=== PATIENT | male | born 1960 | race Caucasian/White ===

== ENCOUNTER 2017-01-06 08:35 | Emergency (ER) | payer OTHER ==
[~2017-01-06] VITALS: Ht 182.9 cm; Wt 83.0 kg
[2017-01-06 08:51] VITALS: BP 130/90; PULSE 85; RESP 18; TEMP 97.5; O2SAT 96
[2017-01-06 09:07] VITALS: BP 130/90; PULSE 80; RESP 18; TEMP 97.5; O2SAT 97
[2017-01-06 09:35] VITALS: BP 130/90; PULSE 80; RESP 18; TEMP 97.5; O2SAT 96
--- NOTE | 2017-01-06 10:13 | PD ---
History of Present Illness Chief Complaint: Psychiatric Symptoms Time Seen by Provider: 09:45 Travel History International Travel<30 Days: No Contact w/Intl Traveler<30days: No Known affected area: No Legal Status Legal Status: Pinto Act Pinto Act Signed By: Eulalia Pinto Act Comment: "Suicidal Ideations" History of Present Illness: This is a 56-year-old male with multiple medical issues, who reportedly made threats to shoot himself at a [facility]. Patient does admit he made the statement "I might as well go home and shoot myself" but he denies actual suicidal plan or intent. He states he was aggravated with the physician who was seeing him. He reports he did not feel they were understanding her compassionate about his pain. He provided this physician with a list of physical problems that create his pain. However, he states he would never kill himself because it is against his samaritan. He verbally contracts for safety and his cognition is completely intact. He denies any homicidal ideation. He denies any psychotic symptoms. Psychiatric History Psychiatric History Hx Psychiatric Treatment: Denied History of Inpatient Treatment: No Guns or firearms in home: No Social History Hx Alcohol Use: No Hx Tobacco Use: No Hx Substance Use: No Hx of Substance Use Treatment: No Review of Systems Except as stated in HPI: all other systems reviewed are Neg Exam Alert: Yes [place]: Person, Place, Date, Situation Mood: Calm Affect: Appropriate Speech: Clear, Logical Eye Contact: Normal Memory Intact: Immediate, Recent, Remote Insight/Judgement Adequate MDM Medical Decision Making Medical Record Reviewed: Yes Assessment/Plan Pinto act being lifted and patient being discharged home. He does not meet criteria for Pinto act or for involuntary psychiatric hospitalization. Results Vital Signs Date Time Temp Pulse Resp B/P Pulse Ox O2 Delivery O2 Flow Rate FiO2 01/06/17 09:35 97.5 80 18 130/90 96 01/06/17 09:07 97.5 80 18 130/90 97 Room Air 01/06/17 08:51 97.5 85 18 130/90 96 Diagnosis Primary Impression: Adjustment disorder with mixed disturbance of emotions and conduct Zackary Casas MD January 06, 2017 10:13
--- NOTE | 2017-01-06 10:32 | PD ---
HPI Chief Complaint: Psychiatric Symptoms Time Seen by Provider: 10:27 Travel History International Travel<30 days: No Contact w/Intl Traveler<30days: No Traveled to known affect area: No History of Present Illness HPI 56-year-old male presents to the next ER as a Pinto act from [facility]. Apparently he was being seen and treated for abdominal pain and when he was discharged home stated that he was going to shoot himself in the head because no wrist pain. Denies suicidal ideation. He says it was just a comment because he's been living in pain for years. He has chronic back pain and abdominal pain. Denies fever, vomiting. Reports chronic diarrhea. Denies auditory or visual hallucinations. Denies homicidal ideations. Says he will do any drug use and get his hands on. [facility] Social History Tobacco Use: No Review of Systems Except as stated in HPI: all other systems reviewed are Neg Physical Exam Narrative GENERAL: Well-nourished, well-developed male patient, in no acute distress SKIN: Warm and dry. HEAD: Atraumatic. Normocephalic. EYES: Pupils equal and round. ENT: Mucosa pink and moist. NECK: Supple. Trachea midline. CARDIOVASCULAR: Regular rate and rhythm. No murmur appreciated. RESPIRATORY: No accessory muscle use. Clear to auscultation. Breath sounds equal bilaterally. GASTROINTESTINAL: Abdomen soft, non-tender, nondistended. Hepatic and splenic margins not palpable. Bowel sounds are active 4 quadrants. MUSCULOSKELETAL: No obvious deformities. No clubbing. No cyanosis. No edema. NEUROLOGICAL: Awake and alert. Oriented 3. No obvious cranial nerve deficits. Motor grossly within normal limits. Normal speech. Moves all extremities. 5/5 strength to all extremities. PSYCHIATRIC: No delusional thought processes. No hallucinations. Data Data Last Documented VS Vital Signs Date Time Temp Pulse Resp B/P Pulse Ox O2 Delivery O2 Flow Rate FiO2 01/06/17 09:35 97.5 80 18 130/90 96 01/06/17 09:07 Room Air Orders Diet Regular Basic (01/06/17 Lunch) [facility] Medical Decision Making Medical Screen Exam Complete: Yes Emergency Medical Condition: Yes Medical Record Reviewed: Yes Differential Diagnosis Psych evaluation, suicidal threat, medical clearance Narrative Course 56-year-old male was sent by [facility] under Millie act for threat of shooting himself in the head after being discharged. Patient has chronic abdominal pain and back pain. He had labs drawn prior to arrival and CMP and CBC are unremarkable. He was positive for cocaine, THC, opiates. Patient presents under a Pinto act. Physical examination and vital signs are essentially unremarkable. Psych screen has been ordered. The patient will be medically cleared for psychiatric evaluation and disposition. Diagnosis Primary Impression: Encounter for psychological evaluation Condition: Stable Stefanie Colunga January 06, 2017 10:32
[2017-01-06 13:21] VITALS: BP 130/90; TEMP 98
== END 2017-01-06 13:28 | disposition home or self-care (01) ==
LOC: NEPJ 08:35
DX: F43.25 Adjustment disorder with mixed disturbance of emotions and conduct (principal)
CPT/HCPCS: 99283

== ENCOUNTER 2017-03-21 01:26 | Inpatient (IN) | payer MEDICARE ==
[~2017-03-21] VITALS: Ht 182.9 cm; Wt 85.1 kg
[2017-03-21] VITALS (7 sets, daily range): BP systolic 129–157; BP diastolic 91–112; PULSE 56–97; RESP 16–20; TEMP 96.2–99.2; O2SAT 93–98
[~2017-03-21 01:26] MED LIST: LORA-373 PO
[2017-03-21] MEDS ORDERED: SENNOSIDES 8.6 MG TAB PO PRN (01:45)
[2017-03-21] MEDS ORDERED: ACETAMINOPHEN 325 MG TAB PO PRN (01:45)
[2017-03-21] MEDS ORDERED: SODIUM CHLORIDE 0.9% FLUSH 10 ML FLUSH IV FLUSH PRN (01:45)
[2017-03-21] MEDS ORDERED: NALOXONE HCL 0.4 MG/ML AMP IV PRN (01:45)
[2017-03-21] MEDS ORDERED: ONDANSETRON HCL 4 MG/2 ML VIAL IVP PRN (01:45)
[2017-03-21] MEDS ORDERED: ALPRAZolam 0.5 MG TAB PO ONE (02:15)
[2017-03-21] MEDS ORDERED: MORPHINE SULFATE 4 MG/ML INJ IV PUSH ONE ×2 (02:15→14:00)
[2017-03-21] MEDS: HEPARIN-D5W INJ 250 ML IV SCH ×2 (02:40→23:28)
[2017-03-21] MEDS: SODIUM CHLORIDE 0.9% FLUSH 10 ML FLUSH IV FLUSH SCH ×2 (09:00→20:15)
[2017-03-21 10:00] LABS: APTT (PATIENT) 35.5 SEC (24.3-30.1)
[2017-03-21] MEDS ORDERED: ALPRAZolam 1 MG TAB PO ONE ×2 (14:15→20:45)
--- NOTE | 2017-03-21 14:51 | HHI.HP ---
[facility] Service [facility] Primary Care Physician Unknown Admission Diagnosis Diagnoses: Chief Complaint: abdominal pain Travel History International Travel<30 Days: No Contact w/Intl Traveler <30 Da: No Traveled to Known Affected Are: No History of Present Illness This is a 57 year old man with a history of narcotic and benzodiazepine use or dependence who has come to the [facility] complaining of abdominal pain 3-4 days of severe abdominal pain after he ran out of his pain meds recently. He has had multiple pain med prescription pain meds from different drs and has been to various hospitals for "abdominal pain". pain is relieved with IV morphine.He says he has an "AAA" that needs repair. Ct abd/pelvis shows mesenteric vein thrombus. He has not had a thrombus before as per his report. He was admitted to the hospital for further evaluation. Review of Systems Constitutional: DENIES: Diaphoretic episodes, Fatigue, Fever, Weight gain, Weight loss, Chills, Dizziness, Change in appetite, Night Sweats Endocrine: DENIES: Heat/cold intolerance, Polydipsia, Polyuria, Polyphagia Eyes: DENIES: Blurred vision, Diplopia, Eye inflammation, Eye pain, Vision loss , Photosensitivity, Double Vision Ears, nose, mouth, throat: DENIES: Tinnitus, Hearing loss, Vertigo, Nasal discharge, Oral lesions, Throat pain, Hoarseness, Ear Pain, Running Nose, Epistaxis, Sinus Pain, Toothache, Odynophagia Respiratory: DENIES: Apneas, Cough, Snoring, Wheezing, Hemoptysis, Sputum production, Shortness of breath Cardiovascular: DENIES: Chest pain, Palpitations, Syncope, Dyspnea on Exertion , PND, Lower Extremity Edema, Orthopnea, Claudication Gastrointestinal: COMPLAINS OF: Abdominal pain, DENIES: Black stools, Bloody stools, Constipation, Diarrhea, Nausea, Vomiting, Difficulty Swallowing, Anorexia Genitourinary: DENIES: Sexual dysfunction, Urinary frequency, Urinary incontinence, Urgency, Hematuria, Dysuria, Nocturia, Penile Discharge, Testicular Pain, Testicular Swelling Musculoskeletal: DENIES: Joint pain, Muscle aches, Stiffness, Joint Swelling, Back pain, Neck pain Integumentary: DENIES: Abnormal pigmentation, Nail changes, Pruritus, Rash Hematologic/lymphatic: DENIES: Bruising, Lymphadenopathy Immunologic/allergic: DENIES: Eczema, Urticaria Neurologic: DENIES: Abnormal gait, Headache, Localized weakness, Paresthesias, Seizures, Speech Problems, Tremor, Poor Balance Psychiatric: DENIES: Anxiety, Confusion, Mood changes, Depression, Hallucinations, Agitation, Suicidal Ideation, Homicidal Ideation, Delusions Except as stated in HPI: all other systems reviewed are Neg Past Family Social History Past Medical History heparin gtt, anti-inflammatory Past Surgical History angioplasty? Reported Medications non-adherant with medical management Allergies: Coded Allergies: No Known Allergies (Unverified , 03/20/17) Active Ordered Medications reviewed in the EMR Family History Patient does not know Social History Tobacco 2ppd No Etoh lives alone Physical Exam Vital Signs Vital Signs Date Time Temp Pulse Resp B/P Pulse Ox O2 Delivery O2 Flow Rate FiO2 03/21/17 12:00 96.2 58 20 141/98 98 03/21/17 08:00 96.5 56 19 136/95 95 03/21/17 04:00 96.7 58 20 129/95 93 03/21/17 03:14 97 03/21/17 01:48 97.3 63 20 157/112 96 Physical Exam GENERAL: This is a well-nourished, well-developed patient, in no apparent distress. SKIN: No rashes, ecchymoses or lesions. Cool and dry. HEAD: Atraumatic. Normocephalic. No temporal or scalp tenderness. EYES: Pupils equal round and reactive. Extraocular motions intact. No scleral icterus. No injection or drainage. ENT: Nose without bleeding, purulent drainage or septal hematoma. Throat without erythema, tonsillar hypertrophy or exudate. Uvula midline. Airway patent. NECK: Trachea midline. No JVD or lymphadenopathy. Supple, nontender, no meningeal signs. CARDIOVASCULAR: Regular rate and rhythm without murmurs, gallops, or rubs. RESPIRATORY: Clear to auscultation. Breath sounds equal bilaterally. No wheezes , rales, or rhonchi. GASTROINTESTINAL: Abdomen soft, non-tender, nondistended. No hepato-splenomegaly , or palpable masses. No guarding. MUSCULOSKELETAL: Extremities without clubbing, cyanosis, or edema. No joint tenderness, effusion, or edema noted. No calf tenderness. Negative Homans sign bilaterally. NEUROLOGICAL: Awake and alert. Cranial nerves II through XII intact. Motor and sensory grossly within normal limits. Five out of 5 muscle strength in all muscle groups. Normal speech. Laboratory Laboratory Tests Test 03/21/17 09:20 Activated Partial 35.[address] abd/pelv 03/20 consistent with mesenteric vein thrombosis Assessment and Plan Problem List: (1) Mesenteric vein thrombosis ICD Code: I81 Status: Acute Plan: continue heparin gtt hematology eval pending I am unsure that this is causing his pain (2) Abdominal pain ICD Code: R10.9 Status: Acute Plan: Continue PO pain meds Some drug seeking behavior noted Physician Certification 2 Midnight Certification Type: Admission for Inpatient Services Order for Inpatient Services The services are ordered in accordance with Medicare regulations or non- Medicare payer requirements, as applicable. In the case of services not specified as inpatient-only, they are appropriately provided as inpatient services in accordance with the 2-midnight benchmark. Estimated LOS (days): 1 1 days is the estimated time the patient will need to remain in the hospital, assuming treatment plan goals are met and no additional complications. Post-Hospital Plan: Rachel Barboza MD Mar 21, 2017 14:51
[2017-03-21] MEDS: ACETAMINOPHEN/HYDROcodone 325 MG/10 MG TAB PO PRN ×2 (15:24→21:06)
[2017-03-21 17:30] LABS: APTT (PATIENT) 41.8 SEC (24.3-30.1)
[2017-03-21] MEDS: IBUPROFEN 400 MG TAB PO SCH (18:00)
[2017-03-21 23:19] LABS: APTT (PATIENT) 71.4 SEC (24.3-30.1)
[2017-03-22] VITALS: BP 109/68; PULSE 57; RESP 18; TEMP 96.3; O2SAT 98
[2017-03-22] MEDS: ACETAMINOPHEN/HYDROcodone 325 MG/10 MG TAB PO PRN (03:37)
[2017-03-22 04:00] VITALS: BP 128/85; PULSE 51; RESP 16; TEMP 96.3; O2SAT 93
[2017-03-22 07:58] VITALS: BP 146/99; PULSE 51; RESP 20; TEMP 96.7; O2SAT 97
[2017-03-22] MEDS: IBUPROFEN 400 MG TAB PO SCH (08:17)
[2017-03-22 08:18] LABS: AUTOMATED NEUTROPHIL # 2.9 TH/MM3 (1.8-7.7); BASOPHIL # 0.2 TH/MM3 (0-0.2); BASOPHIL % 2.7 % (0.0-2.0); EOSINOPHIL # 0.3 TH/MM3 (0-0.4); EOSINOPHIL % 3.9 % (0.0-4.0); LYMPH % 49.6 % (9.0-44.0); LYMPHOCYTE # 4.1 TH/MM3 (1.0-4.8); MEAN CORPUSCULAR HEMOGLOBIN 28.5 PG (27.0-34.0); MEAN CORPUSCULAR HGB CONC 32.4 % (32.0-36.0); MONO % 7.7 % (0.0-8.0); NEUT % 36.1 % (16.0-70.0); PLATELET COUNT 215 TH/MM3 (150-450); RED BLOOD COUNT 5.23 MIL/MM3 (4.50-5.90); RED CELL DISTRIBUTION WIDTH 17.1 % (11.6-17.2); WHITE BLOOD COUNT 8.1 TH/MM3 (4.0-11.0)
[2017-03-22] MEDS: SODIUM CHLORIDE 0.9% FLUSH 10 ML FLUSH IV FLUSH SCH (08:18)
[2017-03-22 08:22] LABS: HEMO FLAGS DIFF FINAL
[2017-03-22 08:23] LABS: POTASSIUM 3.6 MEQ/L (3.5-5.1)
[2017-03-22 08:28] LABS: BICARBONATE 27.5 MEQ/L (21.0-32.0)
[2017-03-22 08:48] LABS: APTT (PATIENT) 76.7 SEC (24.3-30.1)
[2017-03-22] MEDS ORDERED: RIVAROXABAN 15 MG TAB PO SCH (09:00)
[2017-03-22] MEDS ORDERED: ALPR1TAB3 PO (09:11)
[2017-03-22] MEDS ORDERED: XARE15TA PO (09:11)
[2017-03-22] MEDS ORDERED: HYDR-3583 PO (09:11)
--- NOTE | 2017-03-22 09:12 | HHI.DCPOC ---
Discharge Care Plan Diagnosis: (1) Mesenteric vein thrombosis (2) Abdominal pain (3) Chronic pain (4) Anxiety Goals to Promote Your Health * To prevent worsening of your condition and complications * To maintain your health at the optimal level Directions to Meet Your Goals Take your medications as prescribed Follow your dietary instruction Follow activity as directed Keep your appointments as scheduled Take your immunizations and boosters as scheduled If your symptoms worsen call your PCP, if no PCP go to Urgent Care Center or Emergency Room Smoking is Dangerous to Your Health. Avoid second hand smoke Call the 24-hour hour crisis hotline for domestic abuse at Rachel Burkett MD Mar 22, 2017 09:12
--- NOTE | 2017-03-22 09:16 | HHI.DS ---
Discharge Summary Admission Date Mar 21, 2017 at 01:30 Discharge Date: Mar 22, 2017 Admitting Diagnosis (1) Mesenteric vein thrombosis ICD Code: I81 (2) Abdominal pain ICD Code: R10.9 Procedures none Brief History - From Admission This is a 57 year old man with a history of narcotic and benzodiazepine use or dependence who has come to the [place] ER complaining of abdominal pain 3-4 days of severe abdominal pain after he ran out of his pain meds recently. He has had multiple pain med prescription pain meds from different drs and has been to various hospitals for "abdominal pain". pain is relieved with IV morphine.He says he has an "AAA" that needs repair. Ct abd/pelvis shows mesenteric vein thrombus. He has not had a thrombus before as per his report. He was admitted to the hospital for further evaluation. CBC/BMP: 03/22/17 0715 03/22/17 0715 Significant Findings Laboratory Tests Test 03/21/17 03/21/17 03/21/17 03/22/17 09:20 17:05 22:26 07:15 Activated Partial 35.5 SEC 41.8 SEC 71.4 SEC 76.7 SEC Thromboplast Time (24.3-30.1) (24.3-30.1) (24.3-30.1) (24.3-30.1) Lymphocytes (%) (Auto) 49.6 % (9.0-44.0) Basophils (%) (Auto) 2.7 % (0.0-2.0) Estimat Glomerular Filtration 78 ML/MIN (>89) Rate Calcium Level 8.4 MG/DL (8.5-10.1) Imaging Radiology reports from emergency room from03/21 PE at Discharge GENERAL: This is a well-nourished, well-developed patient, in no apparent distress. CARDIOVASCULAR: Regular rate and rhythm without murmurs, gallops, or rubs. RESPIRATORY: Clear to auscultation. Breath sounds equal bilaterally. No wheezes , rales, or rhonchi. GASTROINTESTINAL: Abdomen soft, non-tender, nondistended. Normal active bowel sounds MUSCULOSKELETAL: Extremities without clubbing, cyanosis, or edema. NEURO: Alert & Oriented x4 to person, place, time, situation. Moves all ext x4 Pt update on day of discharge Patient seen today ambulatory in room and without excessive pain. Reports improvement with Xanax yesterday. Plan of care and discharge plan discussed with patient who is agreeable Hospital Course Patient was seen and treated in follow-up for abdominal pain which appears to be chronic. Incidentally he was found to have a mesenteric thrombosis by images. Patient had no evidence of ischemic bowel and no further abdominal pain once he arrived to the hospital and received IV narcotics. He was ambulatory in the hospital and without any new complaints. He was quite insistent that he received pain medication for his chronic pain and anxiety medications for his chronic anxiety. Patient was discharged to follow with his primary care doctor after being started on Xarelto Pt Condition on Discharge: Good Discharge Disposition: Discharge Home Discharge Time: > 30 minutes Discharge Instructions DIET: Follow Instructions for: As Tolerated, No Restrictions Activities you can perform: Regular-No Restrictions Follow up Referrals: PCP Follow-up - 03/01/18 New Medications: Alprazolam (Alprazolam) 1 Mg Tab 1 MG PO Q8H PRN ANXIETY #20 Ref 0 TAB Hydrocodone-Acetaminophen (Hydrocodone-Acetaminophen) 10-325 mg Tab 1 TAB PO Q6H PRN PAIN SCALE 4 TO 10 #20 TAB Rivaroxaban (Xarelto) 15 Mg Tab 15 MG PO BID Please see her doctor for further prescriptions clot #42 TAB Discontinued Medications: Lorazepam (Lorazepam) 0.5 Mg Tab 0.5 MG PO DAILY PRN ANXIETY Ref 0 TAB Rachel Burkett MD Mar 22, 2017 09:16
== END 2017-03-22 11:37 | disposition home or self-care (01) | DRG 442 ==
LOC: PHEDDLT 01:26 → PH3B 01:30
PROVIDERS: ADMIT Hospitalist; ATTEND Hospitalist
DX: I81 Portal vein thrombosis (principal); F11.20 Opioid dependence, uncomplicated; F13.20 Sedative, hypnotic or anxiolytic dependence, uncomplicated; G89.29 Other chronic pain; F41.9 Anxiety disorder, unspecified; K40.90 Unilateral inguinal hernia, without obstruction or gangrene, not specified as recurrent; F17.210 Nicotine dependence, cigarettes, uncomplicated
CPT/HCPCS: 74176; 80048; 80053; 81001; 83605; 83690; 85007; 85025; 85027; 85610; 85730; 93005; C9113; J1644; J2270; J2405; J7030

== ENCOUNTER 2017-03-29 19:56 | Observation (INO) | payer MEDICARE ==
[~2017-03-29] VITALS: Ht 180.3 cm; Wt 82.0 kg
[~2017-03-29 19:56] MED LIST changes: +ALPR1TAB3 PO; +HYDR-3583 PO; -LORA-373 PO; +XARE15TA PO
[2017-03-29 20:10] VITALS: BP 158/87; PULSE 73; RESP 16; TEMP 98.2; O2SAT 96
[2017-03-29] MEDS ORDERED: ONDANSETRON HCL 4 MG/2 ML VIAL IVP ONE (20:15)
[2017-03-29] MEDS ORDERED: SODIUM CHLOR 0.9% 1000 ML INJ 1,000 ML IV SCH (20:15)
[2017-03-29] MEDS ORDERED: MORPHINE SULFATE 4 MG/ML INJ IV PUSH ONE (20:15)
--- NOTE | 2017-03-29 20:33 | PD ---
HPI Chief Complaint: Abdominal Pain Time Seen by Provider: 20:15 Travel History International Travel<30 days: No Contact w/Intl Traveler<30days: No Traveled to known affect area: No History of Present Illness HPI 57-year-old male presents via EMS for evaluation of abdominal pain. The patient reports that a few days ago he had a right inguinal hernia repair at [facility] in [place]. He reports that he was released from the hospital 2 days ago. Yesterday he had to walk 2 miles while carrying some of his belongings because his bus stop was far away from his house. He reports that he has been having right inguinal pain since this morning. He feels like the hernia has returned. The pain is constant, aching, worse with movement. He endorses some nausea but denies vomiting. He denies any diarrhea or constipationhis last bowel movement was yesterday morning. He reports that he has been using the hydrocodone that was prescribed with minimal relief. He denies fevers or chills. He has no other complaints. PFSH Past Medical History Hx Anticoagulant Therapy: Yes (XARALTO) AAA: Yes ("stable") Arthritis: Yes Anxiety: Yes Depression: Yes Heart Rhythm Problems: No Cancer: No Cardiovascular Problems: Yes High Cholesterol: No Chest Pain: Yes (nitro) Congestive Heart Failure: No Cerebrovascular Accident: No Endocrine: No GERD: No Genitourinary: No Headaches: Yes Hiatal Hernia: No Hypertension: Yes Immune Disorder: No Musculoskeletal: Yes Neurologic: Yes Psychiatric: Yes Reproductive: No Respiratory: No Migraines: Yes Seizures: Yes (heat triggers, ) Ulcer: No Past Surgical History Abdominal Surgery: No AICD: No Arteriovenous Shunt: No Cardiac Surgery: Yes (angioplasty, stents) Ear Surgery: No Endocrine Surgery: No Eye Surgery: No Genitourinary Surgery: No Gynecologic Surgery: No Insulin Pump: No Joint Replacement: No Oral Surgery: No Pacemaker: No Thoracic Surgery: No Other Surgery: Yes (Pt states "all over his body" unable to provide specifics.) Social History Alcohol Use: No Tobacco Use: Yes Substance Use: Yes (Marijuana) Allergies-Medications (Allergen,Severity, Reaction): Coded Allergies: No Known Allergies (Unverified , 03/30/17) Reported Meds & Prescriptions Reported Meds & Active Scripts Active Xarelto (Rivaroxaban) 15 Mg Tab 15 Mg PO BID Please see her doctor for further prescriptions Review of Systems Except as stated in HPI: all other systems reviewed are Neg Physical Exam Narrative GENERAL: Well-developed well-nourished male in no acute distress SKIN: Warm and dry. Surgical wound noted in the right inguinal region. There is some surrounding ecchymosis. HEAD: Atraumatic. Normocephalic. EYES: Pupils equal and round. No scleral icterus. No injection or drainage. ENT: No nasal bleeding or discharge. Mucous membranes pink and moist. NECK: Trachea midline. No JVD. CARDIOVASCULAR: Regular rate and rhythm. No murmur appreciated. RESPIRATORY: No accessory muscle use. Clear to auscultation. Breath sounds equal bilaterally. GASTROINTESTINAL: Abdomen soft, non-tender, nondistended. There is a right inguinal hernia present that extends into the scrotum. This is tender to palpation. MUSCULOSKELETAL: No obvious deformities. No edema. NEUROLOGICAL: Awake and alert. No obvious cranial nerve deficits. Motor grossly within normal limits. Normal speech. PSYCHIATRIC: Appropriate mood and affect; insight and judgment normal. Data Data Last Documented VS Vital Signs Date Time Temp Pulse Resp B/P Pulse Ox O2 Delivery O2 Flow Rate FiO2 03/30/17 07:06 61 18 121/65 95 Room Air 03/29/17 20:10 98.2 Orders Complete Blood Count With Diff (03/29/17 20:15) Comprehensive Metabolic Panel (03/29/17 20:15) Lipase (03/29/17 20:15) Lactic Acid (03/29/17 20:15) Prothrombin Time / Inr (Pt) (03/29/17 20:15) Act Partial Throm Time (Ptt) (03/29/17 20:15) Urinalysis - C+S If Indicated (03/29/17 20:15) Ct Abd/Pel W Iv Contrast(Rout) (03/29/17 20:15) Iv Access Insert/Monitor (03/29/17 20:15) Morphine Inj (Morphine Inj) (03/29/17 20:15) Ondansetron Inj (Zofran Inj) (03/29/17 20:15) Sodium Chlor 0.9% 1000 Ml Inj (Ns 1000 M (03/29/17 20:15) Electrocardiogram (03/29/17 20:15) Type And Screen (03/29/17 20:15) Iohexol 350 Inj (Omnipaque 350 Inj) (03/29/17 21:58) Morphine Inj (Morphine Inj) (03/29/17 22:45) Vancomycin Inj (Vancomycin Inj) (03/29/17 23:15) Piperacil-Tazo 3.375 Gm Premix (Zosyn 3. (03/29/17 23:15) Consult General Surgery (03/30/17 ) (Hub Use Only)Inp Phy Cons/Ref (03/30/17 ) NPO (03/30/17 02:07) Morphine Inj (Morphine Inj) (03/30/17 02:30) Sodium Chlor 0.9% 1000 Ml Inj (Ns 1000 M (03/30/17 02:30) Morphine Inj (Morphine Inj) (03/30/17 06:00) Place In Observation (03/30/17 ) Consult Paulino Nfs (03/30/17 ) Diet Regular Basic (03/30/17 Breakfast) Diet Progression Instructions (03/30/17 09:58) Code Status (03/30/17 10:01) Vital Signs (Adult) FAISAL.Q4H (03/30/17 10:01) Activity Oob Ad Gela (03/30/17 10:01) Discontinue Iv (03/30/17 10:01) Change Dressing (03/30/17 10:01) Sodium Chloride 0.9% Flush (Ns Flush) (03/30/17 10:15) Sodium Chloride 0.9% Flush (Ns Flush) (03/30/17 21:00) Acetamin-Hydrocod 325-5 Mg ([place] 5-325 (03/30/17 10:15) Complete Blood Count With Diff (03/31/17 06:00) Acetamin-Hydrocod 325-5 Mg ([place] 5-325 (03/30/17 10:15) Ondansetron Inj (Zofran Inj) (03/30/17 10:15) Post-Op Orders (For Pharmacy) (Post-Op O (03/30/17 10:15) Acetaminophen Inj (Ofirmev Inj) (03/30/17 11:00) Ciprofloxacin (Cipro) (03/30/17 21:00) Labs Laboratory Tests Test 8/6/17 8/6/17 8/6/17 20:25 20:28 22:30 Lactic Acid Level 1.1 mmol/L White Blood Count 12.9 TH/MM3 Red Blood Count 5.75 MIL/MM3 Hemoglobin 16.7 GM/DL Hematocrit 49.7 % Mean Corpuscular Volume 86.3 FL Mean Corpuscular Hemoglobin 29.0 PG Mean Corpuscular Hemoglobin 33.6 % Concent Red Cell Distribution Width 16.4 % Platelet Count 379 TH/MM3 Mean Platelet Volume 7.6 FL Neutrophils (%) (Auto) 73.4 % Lymphocytes (%) (Auto) 17.5 % Monocytes (%) (Auto) 7.3 % Eosinophils (%) (Auto) 1.2 % Basophils (%) (Auto) 0.6 % Neutrophils # (Auto) 9.5 TH/MM3 Lymphocytes # (Auto) 2.3 TH/MM3 Monocytes # (Auto) 0.9 TH/MM3 Eosinophils # (Auto) 0.2 TH/MM3 Basophils # (Auto) 0.1 TH/MM3 CBC Comment DIFF FINAL Differential Comment Prothrombin Time 11.1 SEC Prothromb Time International 1.0 RATIO Ratio Activated Partial 30.5 SEC Thromboplast Time Sodium Level 137 MEQ/L Potassium Level 3.6 MEQ/L Chloride Level 103 MEQ/L Carbon Dioxide Level 24.2 MEQ/L Anion Gap 10 MEQ/L Blood Urea Nitrogen 9 MG/DL Creatinine 0.92 MG/DL Estimat Glomerular Filtration 85 ML/MIN Rate Random Glucose 109 MG/DL Calcium Level 9.1 MG/DL Total Bilirubin 0.8 MG/DL Aspartate Amino Transf 16 U/L (AST/SGOT) Alanine Aminotransferase 17 U/L (ALT/SGPT) Alkaline Phosphatase 85 U/L Total Protein 7.7 GM/DL Albumin 3.5 GM/DL Lipase 53 U/L Blood Type A POSITIVE Antibody Screen NEGATIVE Blood Bank Comment Urine Color YELLOW Urine Turbidity CLEAR Urine pH 7.5 Urine Specific [place] 1.033 Urine Protein NEG mg/dL Urine Glucose (UA) NEG mg/dL Urine Ketones 10 mg/dL Urine Occult Blood NEG Urine Nitrite NEG Urine Bilirubin NEG Urine Urobilinogen LESS THAN 2.0 MG/DL Urine Leukocyte Esterase NEG Urine RBC 3 /hpf Urine WBC LESS THAN 1 /hpf Urine Squamous Epithelial <1 /hpf Cells Urine Bacteria RARE /hpf Microscopic Urinalysis Comment CULT NOT INDICATED MDM Medical Decision Making Medical Screen Exam Complete: Yes Emergency Medical Condition: Yes Medical Record Reviewed: Yes Interpretation(s) CONCLUSION: 1. Patient reportedly recently postoperative from inguinal hernia repair. There is a 4.2 cm complex air and fluid collection just deep to the inguinal ring and there is another 3.4 cm air and fluid collection in the upper left scrotum with multiple locules of air and fluid between these 2 structures. I cannot see any definite connection to bowel. These likely represent postoperative changes but cannot exclude abscess or recurrent hernia. Differential Diagnosis Postoperative edema, postoperative inguinal hernia, incarcerated hernia, strangulated hernia, abscess, seroma Narrative Course 57-year-old male who underwent right inguinal hernia repair a few days ago at [facility] presents now with increased pain and swelling the right inguinal region since this morning. On examination he does have an obvious right inguinal hernia that extends into the scrotum. He has some ecchymosis surrounding the surgical wound. There is no erythema. Ice packs will be applied. The patient will be given parenteral morphine, Zofran and IV fluids. Plan is for basic lab work, CT abdomen and pelvis. We will attempt to obtain records from [facility]. The patient's CT abdomen and pelvis reveals 4.2 CM repair complex air and fluid collection just deep to the inguinal ring and there is another 3.4 cm area of fluid collection in the upper left scrotum with multiple locules of air and fluid between these 2 structures. Certainly this is concerning for postoperative abscess. I discussed with our on-call surgeon Dr. Dominguez who recommends transferring the patient to [facility] for continuation of care purposes. 2305: Dr. Mendoza discussed with Dr. stallings, the general surgeon who performed the operation at [facility]. He declines transfer. Dr. Mendoza again discussed with Dr. Dominguez who is agreeable with consult on the patient and recommends admission to medicine. The case Was discussed with the hospitalist who feels that this patient should be admitted surgically. 0133: The case was again discussed with Dr. Dominguez who would like the patient to remain in the emergency room and he will evaluate him in the morning. 0700: At the end of my shift this patient was signed out to Stefanie SALGADO pending evaluation by Dr. Dominguez in the ED. Diagnosis Primary Impression: Postoperative pain Additional Impressions: Leukocytosis Qualified Code: D72.829 - Leukocytosis, unspecified type S/P inguinal hernia repair Scripts Ciprofloxacin (Cipro)500 Mg [id number] Mg PO Q12HR 5 Days Prov:Zulay Lockett 03/31/17 Yoshi Rios Mar 29, 2017 20:33
[2017-03-29 21:02] LABS: AUTOMATED NEUTROPHIL # 9.5 TH/MM3 (1.8-7.7); BASOPHIL # 0.1 TH/MM3 (0-0.2); BASOPHIL % 0.6 % (0.0-2.0); EOSINOPHIL # 0.2 TH/MM3 (0-0.4); EOSINOPHIL % 1.2 % (0.0-4.0); HEMATOCRIT 49.7 % (39.0-51.0); HEMO FLAGS DIFF FINAL; LYMPH % 17.5 % (9.0-44.0); LYMPHOCYTE # 2.3 TH/MM3 (1.0-4.8); MEAN CELL VOLUME 86.3 FL (80.0-100.0); MEAN CORPUSCULAR HGB CONC 33.6 % (32.0-36.0); MONO % 7.3 % (0.0-8.0); NEUT % 73.4 % (16.0-70.0); PLATELET COUNT 379 TH/MM3 (150-450); RED BLOOD COUNT 5.75 MIL/MM3 (4.50-5.90); RED CELL DISTRIBUTION WIDTH 16.4 % (11.6-17.2); WHITE BLOOD COUNT 12.9 TH/MM3 (4.0-11.0)
[2017-03-29 21:18] LABS: ALT (GPT) 17 U/L (12-78)
[2017-03-29 21:19] LABS: APTT (PATIENT) 30.5 SEC (24.3-30.1); PROTHROMBIN TIME - PATIENT 11.1 SEC (9.8-11.6)
[2017-03-29 21:20] LABS: ALKALINE PHOSPHATASE 85 U/L (45-117); TOTAL BILIRUBIN ADULT 0.8 MG/DL (0.2-1.0)
[2017-03-29 21:31] LABS: ANION GAP 10 MEQ/L (5-15); AST (GOT) 16 U/L (15-37); BICARBONATE 24.2 MEQ/L (21.0-32.0); BLOOD UREA NITROGEN 9 MG/DL (7-18); CHLORIDE 103 MEQ/L (98-107); GLOMERULAR FILTRATION RATE 85 ML/MIN (>89); POTASSIUM 3.6 MEQ/L (3.5-5.1); SODIUM (NA) 137 MEQ/L (136-145)
[2017-03-29] MEDS: IOHEXOL 350 MG/ML 10 ML VIAL (for RAD DIAG) IV ONE (21:58)
--- NOTE | 2017-03-29 22:18 | RADRPT ---
EXAM DATE/TIME: 03/29/2017 21:56 [place] COMPARISON: No previous studies available for comparison. INDICATIONS : Inguinal hernia repaired a few days ago. Complains of inguinal pain today. IV CONTRAST: 95 cc Omnipaque 350 (iohexol) IV ORAL CONTRAST: No oral contrast ingested. RADIATION DOSE: 11.21 CTDIvol (mGy) ; Patient motion MEDICAL HISTORY : Hypertension. Cardiovascular disease Aneurysm, abdominal.Inguinal Hernia. SURGICAL HISTORY : Abdominal aortic aneurysm repair. Inguinal hernia repair. ENCOUNTER: Initial ACUITY: 1 day PAIN SCALE: 10/10 LOCATION: Bilateral lower quadrant TECHNIQUE: Volumetric scanning of the abdomen and pelvis was performed. Using automated exposure control and ad justment of the mA and/or kV according to patient size, radiation dose was kept as low as reasonably achievable to obtain optimal diagnostic quality images. DICOM format image data is available electro nically for review and comparison. FINDINGS: Calcified left lung base. The lung bases otherwise clear. No acute findings in the liver, spleen, adrenals, kidneys or pancreas. There is mild aneurysmal dilat ation of the abdominal aorta to 3.3 cm. In the right inguinal region there is a loculated fluid collection just posterior to the inguinal rin g measuring about 4.3 cm in diameter containing some loculated air. There is complex air and fluid ex tending towards the scrotal region and there is a 3.4 cm complex fluid collection in the upper left s crotum. This could be related to recent surgery. Cannot exclude abscess formation. There is no left i nguinal hernia. No pelvic mass or adenopathy. No free air or significant free fluid. CONCLUSION: 1. Patient reportedly recently postoperative from inguinal hernia repair. There is a 4.2 cm complex a ir and fluid collection just deep to the inguinal ring and there is another 3.4 cm air and fluid chema ection in the upper left scrotum with multiple locules of air and fluid between these 2 structures. I cannot see any definite connection to bowel. These likely represent postoperative changes but cannot exclude abscess or recurrent hernia. Aidan Paz MD on March 29, 2017 at 22:09 Board Certified Radiologist. This report was verified electronically.
[2017-03-29 22:43] LABS: BACTERIA, URINE RARE /hpf; BLOOD, URINE NEG (NEG); COMMENT (UR) CULT NOT INDICATED; CULTURE IF INDICATED CULT NOT INDICATED; GLUCOSE,URINE NEG (NEG); KETONE, URINE 10 mg/dL (NEG); NITRITE,URINE NEG (NEG); PH, URINE 7.5 (5.0-8.5); SQUAMOUS EPITHELIAL CELL URINE <1 /hpf (0-5); URINE COLOR YELLOW (YELLW/STRAW)
[2017-03-29] MEDS: MORPHINE SULFATE 4 MG/ML INJ IV PUSH ONE ×2 (22:45→23:22)
[2017-03-29] MEDS ORDERED: VANCOMYCIN INJ 1,000 MG in SODIUM CHLOR 0.9% 250 ML INJ 250 ML IV ONE (23:15)
[2017-03-29] MEDS ORDERED: PIPERACIL-TAZO 3.375 GM PREMIX 50 ML IV ONE (23:15)
--- NOTE | 2017-03-29 23:43 | PD ---
Physical Exam Narrative I, Dr. Mendoza, have reviewed the advance practice practitioner's documentation and am in agreement, met with the patient face to face, made the diagnosis, and the medical decision making was done by me. *My assessment and Findings: Patient is a 57-year-old male who had a right inguinal hernia repair at [facility] by Dr. Orellana on March 24, who comes in complaining of pain and swelling to the surgical site. He says that yesterday he was walking along distance and carrying a camping mattress, and then he felt as if the hernia had come back out. He is complaining of a lot of pain. He says he has not had a bowel movement since yesterday. He said some nausea, but no vomiting. Exam shows large swelling to the surgical site and into the right testicle. This area is very tender to palpation. There is also tenderness to the lower abdomen. Data Data Last Documented VS Vital Signs Date Time Temp Pulse Resp B/P Pulse Ox O2 Delivery O2 Flow Rate FiO2 03/30/17 07:06 61 18 121/65 95 Room Air 03/29/17 20:10 98.2 Orders Complete Blood Count With Diff (03/29/17 20:15) Comprehensive Metabolic Panel (03/29/17 20:15) Lipase (03/29/17 20:15) Lactic Acid (03/29/17 20:15) Prothrombin Time / Inr (Pt) (03/29/17 20:15) Act Partial Throm Time (Ptt) (03/29/17 20:15) Urinalysis - C+S If Indicated (03/29/17 20:15) Ct Abd/Pel W Iv Contrast(Rout) (03/29/17 20:15) Iv Access Insert/Monitor (03/29/17 20:15) Morphine Inj (Morphine Inj) (03/29/17 20:15) Ondansetron Inj (Zofran Inj) (03/29/17 20:15) Sodium Chlor 0.9% 1000 Ml Inj (Ns 1000 M (03/29/17 20:15) Electrocardiogram (03/29/17 20:15) Type And Screen (03/29/17 20:15) Iohexol 350 Inj (Omnipaque 350 Inj) (03/29/17 21:58) Morphine Inj (Morphine Inj) (03/29/17 22:45) Vancomycin Inj (Vancomycin Inj) (03/29/17 23:15) Piperacil-Tazo 3.375 Gm Premix (Zosyn 3. (03/29/17 23:15) Consult General Surgery (03/30/17 ) (Hub Use Only)Inp Phy Cons/Ref (03/30/17 ) NPO (03/30/17 02:07) Morphine Inj (Morphine Inj) (03/30/17 02:30) Sodium Chlor 0.9% 1000 Ml Inj (Ns 1000 M (03/30/17 02:30) Morphine Inj (Morphine Inj) (03/30/17 06:00) Place In Observation (03/30/17 ) Consult Paulino Nfs (03/30/17 ) Diet Regular Basic (03/30/17 Breakfast) Diet Progression Instructions (03/30/17 09:58) Code Status (03/30/17 10:01) Vital Signs (Adult) FAISAL.Q4H (03/30/17 10:01) Activity Oob Ad Gela (03/30/17 10:01) Discontinue Iv (03/30/17 10:01) Change Dressing (03/30/17 10:01) Sodium Chloride 0.9% Flush (Ns Flush) (03/30/17 10:15) Sodium Chloride 0.9% Flush (Ns Flush) (03/30/17 21:00) Acetamin-Hydrocod 325-5 Mg ([place] 5-325 (03/30/17 10:15) Complete Blood Count With Diff (03/31/17 06:00) Acetamin-Hydrocod 325-5 Mg ([place] 5-325 (03/30/17 10:15) Ondansetron Inj (Zofran Inj) (03/30/17 10:15) Post-Op Orders (For Pharmacy) (Post-Op O (03/30/17 10:15) Acetaminophen Inj (Ofirmev Inj) (03/30/17 11:00) Ciprofloxacin (Cipro) (03/30/17 21:00) Labs Laboratory Tests Test 03/29/17 03/29/17 03/29/17 20:25 20:28 22:30 Lactic Acid Level 1.1 mmol/L White Blood Count 12.9 TH/MM3 Red Blood Count 5.75 MIL/MM3 Hemoglobin 16.7 GM/DL Hematocrit 49.7 % Mean Corpuscular Volume 86.3 FL Mean Corpuscular Hemoglobin 29.0 PG Mean Corpuscular Hemoglobin 33.6 % Concent Red Cell Distribution Width 16.4 % Platelet Count 379 TH/MM3 Mean Platelet Volume 7.6 FL Neutrophils (%) (Auto) 73.4 % Lymphocytes (%) (Auto) 17.5 % Monocytes (%) (Auto) 7.3 % Eosinophils (%) (Auto) 1.2 % Basophils (%) (Auto) 0.6 % Neutrophils # (Auto) 9.5 TH/MM3 Lymphocytes # (Auto) 2.3 TH/MM3 Monocytes # (Auto) 0.9 TH/MM3 Eosinophils # (Auto) 0.2 TH/MM3 Basophils # (Auto) 0.1 TH/MM3 CBC Comment DIFF FINAL Differential Comment Prothrombin Time 11.1 SEC Prothromb Time International 1.0 RATIO Ratio Activated Partial 30.5 SEC Thromboplast Time Sodium Level 137 MEQ/L Potassium Level 3.6 MEQ/L Chloride Level 103 MEQ/L Carbon Dioxide Level 24.2 MEQ/L Anion Gap 10 MEQ/L Blood Urea Nitrogen 9 MG/DL Creatinine 0.92 MG/DL Estimat Glomerular Filtration 85 ML/MIN Rate Random Glucose 109 MG/DL Calcium Level 9.1 MG/DL Total Bilirubin 0.8 MG/DL Aspartate Amino Transf 16 U/L (AST/SGOT) Alanine Aminotransferase 17 U/L (ALT/SGPT) Alkaline Phosphatase 85 U/L Total Protein 7.7 GM/DL Albumin 3.5 GM/DL Lipase 53 U/L Blood Type A POSITIVE Antibody Screen NEGATIVE Blood Bank Comment Urine Color YELLOW Urine Turbidity CLEAR Urine pH 7.5 Urine Specific [place] 1.033 Urine Protein NEG mg/dL Urine Glucose (UA) NEG mg/dL Urine Ketones 10 mg/dL Urine Occult Blood NEG Urine Nitrite NEG Urine Bilirubin NEG Urine Urobilinogen LESS THAN 2.0 MG/DL Urine Leukocyte Esterase NEG Urine RBC 3 /hpf Urine WBC LESS THAN 1 /hpf Urine Squamous Epithelial <1 /hpf Cells Urine Bacteria RARE /hpf Microscopic Urinalysis Comment CULT NOT INDICATED MDM Supervised Visit with TAMICA: Yes Narrative Course Patient is a 57 year old male who comes in complaining of pain and swelling to his surgical site. CT abd/pelvis shows post-op changes vs abscess vs return of the inguinal hernia. Dr. Dominguez of general surgery advised that we call his surgeon at [facility]. I spoke with Dr. Orellana at 23:05 who states "I am not adult education professional for [facility]. That patient can follow up in my office." I explained that I was concerned he could have an abscess and become very ill if he were to be discharged. I explained that I felt it was in the best interest of the patient to have continuity of care and be seen by the surgeon who did his operation. Dr. Orellana still refused to accept the patient for transfer and to see him in the hospital. Patient given Vancomycin and Zosyn while waiting for the transfer center to speak with their administration. At 00:08, I spoke with Dr. Orellana again, who states the patient is supposed to call and make a follow up appointment. I expressed my concern that he was having a post-op complication, but Dr. Orellana says he will not accept transfer back to [facility]. He insists that surgeons here at [facility] should see the patient and will not comment further on the possibility of a post -op complication. I spoke with Dr. Dominguez who will see the patient in the AM. Diagnosis Primary Impression: Abdominal pain Qualified Code: R10.30 - Lower abdominal pain Additional Impressions: Postoperative pain Leukocytosis Qualified Code: D72.829 - Leukocytosis, unspecified type Scripts Ciprofloxacin (Cipro)500 Mg [id number] Mg PO Q12HR 5 Days Prov:Zulay Lockett GREEN [employer]IZE PACKER 03/31/17 Condition: Stable Brina Mendoza MD Mar 29, 2017 23:43
[2017-03-30] MEDS ORDERED: MORPHINE SULFATE 4 MG/ML INJ IV PUSH ONE ×2 (02:30→06:00)
[2017-03-30] MEDS: SODIUM CHLOR 0.9% 1000 ML INJ 1,000 ML IV SCH ×3 (02:34→18:30)
[2017-03-30 02:35] VITALS: BP 146/80; PULSE 62; RESP 16; O2SAT 97
[2017-03-30 07:06] VITALS: BP 121/65; PULSE 61; RESP 18; O2SAT 95
[2017-03-30] MEDS ORDERED: Post-op Orders (for Pharmacy) MISC XX ONE (10:15)
[2017-03-30] MEDS ORDERED: SODIUM CHLORIDE 0.9% FLUSH 10 ML FLUSH IV FLUSH PRN (10:15)
[2017-03-30] MEDS ORDERED: ONDANSETRON HCL 4 MG/2 ML VIAL IV PRN (10:15)
[2017-03-30] MEDS: ACETAMINOPHEN/HYDROcodone 325 MG/5 MG TAB PO PRN ×5 (10:30→23:45)
[2017-03-30] MEDS: ACETAMINOPHEN INJ 100 ML IV SCH ×3 (11:00→23:00)
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
[2017-03-30 11:33] VITALS: BP 168/94; PULSE 68; RESP 16; TEMP 99.3; O2SAT 96
[2017-03-30] MEDS: ALPRAZolam 0.5 MG TAB PO PRN ×2 (14:25→23:45)
--- NOTE | 2017-03-30 16:24 | EKG ---
Date Performed: 03/29/2017 Time Performed: 21:03:25 PTAGE: 57 years EKG: Sinus rhythm WITH FREQUENT VENTRICULAR PREMATURE COMPLEXES INCOMPLETE RIGHT BUNDLE BRANCH BLOCK LEFT ANTERIOR FAS CICULAR BLOCK MODERATE T-WAVE ABNORMALITY, CONSIDER LATERAL ISCHEMIA ABNORMAL ECG NO PREVIOUS TRACING DOCTOR: Vinod Steele Interpretating Date/Time 03/30/2017 16:22:03
[2017-03-30 17:14] VITALS: BP 154/90; PULSE 75; RESP 18; TEMP 98.6; O2SAT 95
[2017-03-30 20:55] VITALS: BP 145/97; PULSE 67; RESP 18; TEMP 97.4; O2SAT 94
[2017-03-30] MEDS: SODIUM CHLORIDE 0.9% FLUSH 10 ML FLUSH IV FLUSH SCH (21:00)
[2017-03-30] MEDS: CIPROFLOXACIN 500 MG TAB PO SCH (21:00)
[2017-03-31 01:16] VITALS: BP 141/83; PULSE 50; RESP 17; TEMP 97.4; O2SAT 90
[2017-03-31] MEDS: ACETAMINOPHEN/HYDROcodone 325 MG/5 MG TAB PO PRN ×2 (03:21→03:24)
[2017-03-31] MEDS ORDERED: ACETAMINOPHEN/HYDROcodone 325 MG/5 MG TAB PO PRN (03:45)
[2017-03-31 04:52] VITALS: BP 132/81; PULSE 57; RESP 18; TEMP 97.4; O2SAT 96
[2017-03-31] MEDS: ACETAMINOPHEN INJ 100 ML IV SCH (05:00)
[2017-03-31] MEDS: ALPRAZolam 0.5 MG TAB PO PRN (07:18)
[2017-03-31] MEDS: SODIUM CHLOR 0.9% 1000 ML INJ 1,000 ML IV SCH (07:19)
[2017-03-31 08:24] VITALS: BP 116/84; PULSE 57; RESP 16; TEMP 99; O2SAT 91
[2017-03-31 10:05] LABS: AUTOMATED NEUTROPHIL # 7.7 TH/MM3 (1.8-7.7); BASOPHIL # 0.1 TH/MM3 (0-0.2); BASOPHIL % 0.9 % (0.0-2.0); EOSINOPHIL # 0.3 TH/MM3 (0-0.4); EOSINOPHIL % 2.9 % (0.0-4.0); HEMATOCRIT 41.5 % (39.0-51.0); HEMO FLAGS DIFF FINAL; LYMPH % 21.2 % (9.0-44.0); LYMPHOCYTE # 2.5 TH/MM3 (1.0-4.8); MEAN CORPUSCULAR HGB CONC 33.3 % (32.0-36.0); MONO % 9.4 % (0.0-8.0); NEUT % 65.6 % (16.0-70.0); PLATELET COUNT 321 TH/MM3 (150-450); RED BLOOD COUNT 4.77 MIL/MM3 (4.50-5.90); RED CELL DISTRIBUTION WIDTH 16.6 % (11.6-17.2); WHITE BLOOD COUNT 11.8 TH/MM3 (4.0-11.0)
[2017-03-31] MEDS ORDERED: CIPR-9 PO (10:08)
[2017-03-31] MEDS: CIPROFLOXACIN 500 MG TAB PO SCH (10:56)
[2017-03-31] MEDS: SODIUM CHLORIDE 0.9% FLUSH 10 ML FLUSH IV FLUSH SCH (10:56)
== END 2017-03-31 12:14 | disposition home or self-care (01) ==
LOC: NEPD 19:56 → NEDA 03-30 10:34 → NEPHCDU 03-30 11:27
PROVIDERS: ADMIT Surgery; ATTEND Surgery
DX: G89.18 Other acute postprocedural pain (principal); R10.31 Right lower quadrant pain; Z79.01 Long term (current) use of anticoagulants; I71.4 Abdominal aortic aneurysm, without rupture; F41.9 Anxiety disorder, unspecified; F32.9 Major depressive disorder, single episode, unspecified; R56.9 Unspecified convulsions; F17.200 Nicotine dependence, unspecified, uncomplicated; F12.10 Cannabis abuse, uncomplicated; D72.829 Elevated white blood cell count, unspecified; K55.069 Acute infarction of intestine, part and extent unspecified
CPT/HCPCS: 74177; 80053; 81001; 83605; 83690; 85025; 85610; 85730; 86850; 86900; 86901; 93005; 96365; 96366; 96375; 96376; 99285; G0378; J2270; J2405; J2543; J3370; J7030; J7050; Q9967

== ENCOUNTER 2017-04-03 19:44 | Emergency (ER) | payer MEDICARE, OTHER ==
[~2017-04-03] VITALS: Ht 167.6 cm; Wt 82.0 kg
[~2017-04-03 19:44] MED LIST changes: -ALPR1TAB3 PO; +CIPR-9 PO; -HYDR-3583 PO
[2017-04-03 20:47] VITALS: BP 149/90; PULSE 82; RESP 16; TEMP 98.5; O2SAT 96
[2017-04-03] MEDS ORDERED: ONDANSETRON HCL 4 MG/2 ML VIAL IV PUSH ONE (21:15)
[2017-04-03] MEDS ORDERED: MORPHINE SULFATE 8 MG/ML INJ IV PUSH ONE (21:15)
--- NOTE | 2017-04-03 21:15 | PD ---
HPI Chief Complaint: Psychiatric Symptoms Time Seen by Provider: 21:04 Travel History International Travel<30 days: No Contact w/Intl Traveler<30days: No Traveled to known affect area: No History of Present Illness HPI 57- year old male presents to the ED under a pinto act for agitation and anxiety. The patient reports that he has taken a Xanax prior to arrival but had no relief. He reports chest pain and shortness of breath only when he has episodes of anxiety. He states he has chronic pain all over his body and gives it a 10/10 currently. He reports he had a hernia repair last week with some complications. The patient states he hopes he has cancer so he can end it all now. The patient reports he has a medical history of 3 stents and whiplash. He denies any alcohol, smoking, or drugs. He reports he takes ASA occasionally. He is very aggressive on exam. He is able to be redirected but he continues to be somewhat aggressive and demanding. He states that he wants to me to "[place]" but has no plan to kill himself. Per patient he just wants to "speed the process ". He does have a history of depression and he is supposed to be a medications but unsure why he doesn't want to take them. PFSH Past Medical History Hx Anticoagulant Therapy: Yes (HX XARELTO REFUSES TO TAKE CURRENTLY ) AAA: Yes ("stable") Arthritis: Yes Anxiety: Yes Depression: No Heart Rhythm Problems: No Cancer: No Cardiovascular Problems: Yes (stents x3. patient states "I have 30% of my heart working") High Cholesterol: No Chest Pain: Yes (nitro) Congestive Heart Failure: No Cerebrovascular Accident: No Endocrine: No Gastrointestinal Disorders: No GERD: No Genitourinary: No Headaches: Yes Hiatal Hernia: No Hypertension: Yes Immune Disorder: No Implanted Vascular Access Dvce: No Musculoskeletal: Yes (back and neck pain.) Neurologic: Yes (seizure) Psychiatric: Yes (PTSD) Reproductive: No Respiratory: No Migraines: Yes Seizures: Yes (heat triggers, ) Ulcer: No Past Surgical History Abdominal Surgery: Yes (HERNIA REPAIR 03/2017) AICD: No Arteriovenous Shunt: No Cardiac Surgery: Yes (angioplasty, stents) Ear Surgery: No Endocrine Surgery: No Eye Surgery: No Genitourinary Surgery: No Gynecologic Surgery: No Insulin Pump: No Joint Replacement: No Neurologic Surgery: No Oral Surgery: No Pacemaker: No Thoracic Surgery: No Other Surgery: Yes (hernia repair, left foot, right arm, right hand, neck and back surgery.) Social History Alcohol Use: No Tobacco Use: Yes Substance Use: Yes (Marijuana. ) Allergies-Medications (Allergen,Severity, Reaction): Coded Allergies: No Known Allergies (Unverified , 04/03/17) Reported Meds & Prescriptions Reported Meds & Active Scripts Active No Active Prescriptions or Reported Medications Review of Systems General / Constitutional: No: Fever, Chills, Weight Gain, Weight Loss, Other Eyes: No: Diploplia, Blurred Vision, Photophobia, Drainage, Redness, Foreign Body Sensation, Pain, Tearing, Blind Spots, Visual changes, Blindness, Other HENT: No: Headaches, Vertigo, Lightheadedness, Sore Throat, Rhinitis, Rhinorrhea, Congestion, Nosebleed, Neck Stiffness, Neck Pain, Masses, Gingival Bleeding, Dental Difficulties, Ear Discharge, Earache, Other Cardiovascular: Positive: Chest Pain or Discomfort (with anxiety), No: Palpitations, Irregular Rhythm, Tachycardia, Diaphoresis, Syncope, Dyspnea on exertion, Varicosities, Edema, Cyanosis, Varicosities, Phlebitis, Claudication, Other Respiratory: Positive: Shortness of Breath (with anxiety), No: Cough, Wheezing , Sneezing, Orthopnea, Hemoptysis, Stridor, Night Sweats, Pleuritic Pain, Other Gastrointestinal: No: Nausea, Vomiting, Diarrhea, Abdominal Pain, Hematemesis, Hematochezia, Constipation, Changes in Bowel Habits, Indigestion, Dysphagia, Loss of Appetite, Other Genitourinary: No: Urgency, Frequency, Dysuria, Nocturia, Hematuria, Decreased Urinary Output, Oliguria, Hesitancy, Dribbling, Incontinence, Pelvic Pain, Flank Pain, Dyspareunia, Discharge, Dysmenorrhea, Menorrhagia, Metorrhagia, Vaginal Bleeding, Other Musculoskeletal: Positive: Myalgias (all over), No: Arthralgias, Limited ROM, Weakness, Cramping, Edema, Pain, Atrophy, Other Skin: No Rash, No Itching, No Dryness, No Lumps, No Hives, No Change in Pigmentation, No Change in nails, No Alopecia, No Lesions, No Breast Lumps, No Breast Tenderness, No Breast Swelling, No Other Neurologic: No: Weakness, Dizziness, Syncope, Focal Abnormalities, Coordination Problem, Tremor, Ataxia, Headache, Change in Mentation, Slurred Speech, Paresthesia, Incontinence, Seizures, Sensory Disturbance, Other Psychiatric: Positive: Anxiety, No: Depression, Suicidal Ideations, Disorder of Thought, Mood Disorder, Substance Abuse, Homicidal Ideation, Other Endocrine: No: Heat Intolerance, Cold Intolerance, Polyuria, Polydipsia, Other Hematologic/Lymphatic: No: Easy Bruising, Lymph Node Enlargement, Other Physical Exam Exam Limitations: Uncooperative Narrative GENERAL: SKIN: Warm and dry. HEAD: Atraumatic. Normocephalic. EYES: Pupils equal and round. No scleral icterus. No injection or drainage. ENT: No nasal bleeding or discharge. Mucous membranes pink and moist. Tongue is midline. No uvula deviation. NECK: Trachea midline. No JVD. CARDIOVASCULAR: Regular rate and rhythm. No S3, S4, murmurs, rubs, gallops, or clicks. RESPIRATORY: No accessory muscle use. Clear to auscultation. Breath sounds equal bilaterally. GASTROINTESTINAL: Abdomen soft, patient does have a reducible hernia on the right lower quadrant., nondistended. Hepatic and splenic margins not palpable. MUSCULOSKELETAL: Extremities without clubbing, cyanosis, or edema. No obvious deformities. Patient has full range of motion in upper and lower extremities. No pain to palpation in cervical, thoracic, or lumbar vertebrae. NEUROLOGICAL: Awake and alert. No obvious cranial nerve deficits. Motor grossly within normal limits. Five out of 5 muscle strength in the arms and legs. Normal speech. PSYCHIATRIC: Patient is anxious and agitated; insight and judgment limited. Data Data Last Documented VS Vital Signs Date Time Temp Pulse Resp B/P Pulse Ox O2 Delivery O2 Flow Rate FiO2 04/03/17 20:47 98.5 82 16 149/90 96 Orders Complete Blood Count With Diff (04/03/17 21:04) Comprehensive Metabolic Panel (04/03/17 21:04) Troponin I (04/03/17 21:04) Thyroid Stimulating Hormone (04/03/17 21:04) Psych Screen (04/03/17 21:04) Drug Screen, Random Urine (04/03/17 21:04) Alcohol (Ethanol) (04/03/17 21:04) Salicylates (Aspirin) (04/03/17 21:04) Tylenol (Acetaminophen) (04/03/17 21:04) Electrocardiogram (04/03/17 21:14) Chest, Single Ap (04/03/17 21:14) Morphine Inj (Morphine Inj) (04/03/17 21:15) Ondansetron Inj (Zofran Inj) (04/03/17 21:15) Oxycodone-Acetamin 5-325 Mg (Percocet (04/03/17 22:00) [facility] Medical Decision Making Medical Screen Exam Complete: Yes Emergency Medical Condition: Yes Medical Record Reviewed: Yes Interpretation(s) Last Impressions Chest X-Ray 04/03/172113 Signed Impressions: Service Date/Time: Monday, April 03, 2017 21:12 - CONCLUSION: 1. No focal consolidation. Basilar scarring. Aidan Paz MD Differential Diagnosis Chest pain Myocardial Infarction Anxiety Attack Hyperthyroidism Depression Narrative Course 57-year-old male that presents to the ED for evaluation of Pinto act. Patient was properly examined and was found to have signs and symptoms consistent with psychiatric illness. On my evaluation patient appeared to be agitated but reasonable to deal with. He is increasingly became more agitated and became very demanding to the nursing staff. My attending Daily evaluated the patient and patient refuses any blood work. Patient was given offered pain medication by my attending and he declined this. At this time my attending believes the patient is capable of making decisions. Patient will be medically clear as per my attendings recommendations. Please refer to his note. Okay to be seen by psych. Mental health screening was discussed with the patient. Diagnosis Primary Impression: Adjustment disorder with mixed disturbance of emotions and conduct Scripts No Active Prescriptions or Reported Meds Saroj Zaragoza Apr 03, 2017 21:15
--- NOTE | 2017-04-03 21:51 | PD ---
Data Data Last Documented VS Vital Signs Date Time Temp Pulse Resp B/P Pulse Ox O2 Delivery O2 Flow Rate FiO2 04/03/17 20:47 98.5 82 16 149/90 96 Orders Complete Blood Count With Diff (04/03/17 21:04) Comprehensive Metabolic Panel (04/03/17 21:04) Troponin I (04/03/17 21:04) Thyroid Stimulating Hormone (04/03/17 21:04) Psych Screen (04/03/17 21:04) Drug Screen, Random Urine (04/03/17 21:04) Alcohol (Ethanol) (04/03/17 21:04) Salicylates (Aspirin) (04/03/17 21:04) Tylenol (Acetaminophen) (04/03/17 21:04) Electrocardiogram (04/03/17:14) Chest, Single Ap (04/03/17 21:14) Morphine Inj (Morphine Inj) (04/03/17 21:15) Ondansetron Inj (Zofran Inj) (04/03/17 21:15) Oxycodone-Acetamin 5-325 Mg (Percocet (04/03/17 22:00) MDM Supervised Visit with TAMICA: Yes Narrative Course I, Dr. Schmitz, have reviewed the advance practice practitioner's documentation and am in agreement, met with the patient face to face, made the diagnosis, and the medical decision making was done by me. *My assessment and Findings: This is a 57-year-old male with a history of chronic back pain hernia surgery recently in his right groin presents emergency Department under Pinto act after threatening to kill a secretary of police as well as himself. Patient very R rate with nursing staff after attempting to start an IV and will not allow an additional IV be started on him. Patient initially had pain medication ordered by Saroj Zaragoza PA-C, unfortunately no Her lab could be obtained on the patient due to his refusal. At this time the patient is calm and cooperative. He is redirected into the bed but continues to refuse IV starts. For that reason I ordered an Percocet which she also refused. The patient is very difficult but I do not see reason to force lab on him at this time. I explained to him that this may delay his disposition from a psychiatric standpoint. His hernia is easily reducible by me. At this time he is medically cleared for psychiatric evaluation and disposition. Scripts No Active Prescriptions or Reported Meds Condition: Chadwick Isaac MD Apr 03, 2017 21:50
[2017-04-03] MEDS ORDERED: oxyCODONE/ACETAMINOPHEN 5 MG/325 MG TAB PO ONE (22:00)
--- NOTE | 2017-04-03 22:03 | RADRPT ---
EXAM DATE/TIME: 04/03/2017 21:12 [facility] COMPARISON: No previous studies available for comparison. INDICATIONS : Chest pain. MEDICAL HISTORY : Hypertension. Cardiovascular disease Aneurysm, abdominal.Inguinal Hernia SURGICAL HISTORY : Abdominal aortic aneurysm repair. Inguinal hernia repair. ENCOUNTER: Initial ACUITY: 1 day PAIN SCORE: 10/10 LOCATION: Bilateral chest FINDINGS: A single view of the chest demonstrates the lungs to be symmetrically aerated without evidence of mas s, infiltrate or effusion. Scarring left lung base. The cardiomediastinal contours are unremarkable. Osseous structures are intact. CONCLUSION: 1. No focal consolidation. Basilar scarring. Aidan Paz MD on April 03, 2017 at 22:01 Board Certified Radiologist. This report was verified electronically.
[2017-04-04 00:17] LABS: AUTOMATED NEUTROPHIL # 9.7 TH/MM3 (1.8-7.7); BASOPHIL # 0.1 TH/MM3 (0-0.2); BASOPHIL % 0.8 % (0.0-2.0); EOSINOPHIL # 0.3 TH/MM3 (0-0.4); HEMATOCRIT 47.2 % (39.0-51.0); HEMO FLAGS DIFF FINAL; LYMPH % 23.4 % (9.0-44.0); LYMPHOCYTE # 3.4 TH/MM3 (1.0-4.8); MEAN CELL VOLUME 85.6 FL (80.0-100.0); MEAN CORPUSCULAR HEMOGLOBIN 28.5 PG (27.0-34.0); MEAN CORPUSCULAR HGB CONC 33.3 % (32.0-36.0); MONO % 7.3 % (0.0-8.0); NEUT % 66.5 % (16.0-70.0); PLATELET COUNT 474 TH/MM3 (150-450); RED BLOOD COUNT 5.51 MIL/MM3 (4.50-5.90); RED CELL DISTRIBUTION WIDTH 16.2 % (11.6-17.2); WHITE BLOOD COUNT 14.6 TH/MM3 (4.0-11.0)
[2017-04-04 00:52] LABS: ALT (GPT) 25 U/L (12-78); ANION GAP 10 MEQ/L (5-15); AST (GOT) 16 U/L (15-37); BICARBONATE 27.3 MEQ/L (21.0-32.0); BLOOD UREA NITROGEN 8 MG/DL (7-18); CHLORIDE 103 MEQ/L (98-107); GLOMERULAR FILTRATION RATE 76 ML/MIN (>89); POTASSIUM 3.4 MEQ/L (3.5-5.1); SODIUM (NA) 140 MEQ/L (136-145)
[2017-04-04] MEDS ORDERED: oxyCODONE/ACETAMINOPHEN 5 MG/325 MG TAB PO ONE (01:00)
[2017-04-04 01:02] LABS: ALKALINE PHOSPHATASE 97 U/L (45-117); TOTAL BILIRUBIN ADULT 0.6 MG/DL (0.2-1.0)
[2017-04-04 01:06] LABS: ALCOHOL LESS THAN 3 MG/DL (0-5)
[2017-04-04 01:07] LABS: ACETAMINOPHEN LESS THAN 2.0 MCG/ML (10.0-30.0)
[2017-04-04 05:57] VITALS: BP 155/83; PULSE 72; RESP 20; TEMP 98.1; O2SAT 97
[2017-04-04 10:00] VITALS: BP 145/83; PULSE 65; RESP 18
--- NOTE | 2017-04-04 13:52 | PD.PSY.CON ---
Provisional Diagnosis Admission Date [place]. Adjustment disorder with depressed mood, history of anxiety History of Present Illness Service Psychiatry Consult Requested By Reason for Consult Suicidal statement in the ER Primary Care Physician Unknown HPI The patient is a 57-year-old man, domiciled in [place], , employed, with psychiatric history of anxiety, no psychiatric admissions, who previous suicidal attempts, he is on Xanax 2 mg 3 times a day, prescribed by PCP , medical history of inguinal hernia, CAD, HTN, who presents to the ED under a pinto act for agitation and anxiety. The patient reports that he has taken a Xanax prior to arrival but had no relief. He reports chest pain and shortness of breath only when he has episodes of anxiety. He states he has chronic pain all over his body and gives it a 10/10 currently. He reports he had a hernia repair last week with some complications. The patient states he hopes he has cancer so he can end it all now. The patient reports he has a medical history of 3 stents and whiplash. He denies any alcohol, smoking, or drugs. He reports he takes ASA occasionally. He is very aggressive on exam. He is able to be redirected but he continues to be somewhat aggressive and demanding. He states that he wants to me to "[place]" but has no plan to kill himself. Per patient he just wants to "speed the process ". He does have a history of depression and he is supposed to be a medications but unsure why he doesn't want to take them. Patient denies suicidal and homicidal ideation. Review of Systems Constitutional: DENIES: Diaphoretic episodes, Fatigue, Fever, Weight gain, Weight loss, Chills, Dizziness, Change in appetite, Night Sweats Endocrine: DENIES: Heat/cold intolerance, Polydipsia, Polyuria, Polyphagia Eyes: DENIES: Blurred vision, Diplopia, Eye inflammation, Eye pain, Vision loss , Photosensitivity, Double Vision Ears, nose, mouth, throat: DENIES: Tinnitus, Hearing loss, Vertigo, Nasal discharge, Oral lesions, Throat pain, Hoarseness, Ear Pain, Running Nose, Epistaxis, Sinus Pain, Toothache, Odynophagia Respiratory: DENIES: Apneas, Cough, Snoring, Wheezing, Hemoptysis, Sputum production, Shortness of breath Cardiovascular: DENIES: Chest pain, Palpitations, Syncope, Dyspnea on Exertion , PND, Lower Extremity Edema, Orthopnea, Claudication Gastrointestinal: DENIES: Abdominal pain, Black stools, Bloody stools, Constipation, Diarrhea, Nausea, Vomiting, Difficulty Swallowing, Anorexia Integumentary: DENIES: Abnormal pigmentation, Nail changes, Pruritus, Rash Hematologic/lymphatic: DENIES: Bruising, Lymphadenopathy Psychiatric: DENIES: Anxiety, Confusion, Mood changes, Depression, Hallucinations, Agitation, Suicidal Ideation, Homicidal Ideation, Delusions Past Family Social History Coded Allergies: No Known Allergies (Unverified , 04/03/17) Discontinued Scripts Ciprofloxacin (Cipro)500 Mg Exf374 Mg PO Q12HR 5 Days Prov:Zulay Lockett 03/31/17 Rivaroxaban (Xarelto)15 Mg Tab15 Mg PO BID #42 TAB Please see her doctor for further prescriptions Prov:Rachel Burkett MD 03/22/17 Alprazolam 1 Mg Tab1 Mg PO Q8H PRN (ANXIETY) #20 TAB Ref 0 Prov:Rachel Burkett MD 03/22/17 Hydrocodone-Acetaminophen 10-325 mg Tab1 Tab PO Q6H PRN (PAIN SCALE 4 TO 10) # 20 TAB Prov:Rachel Burkett MD 03/22/17 Family History Patient denies family psychiatric history Social History Patient was born and raised in [place], he is in [place] alone, he is , no kids, employed, highest level of education is 10th grade Physical Exam Vital Signs Vital Signs Date Time Temp Pulse Resp B/P Pulse Ox O2 Delivery O2 Flow Rate FiO2 04/04/17 10:00 65 18 145/83 Room Air 04/04/17 05:57 98.1 97 Mental Status Examination Appearance man, [facility], good hygiene, calm and cooperative Speech: Unremarkable Orientation: x3 Memory: Unremarkable Thought Process: Organized Thought Content: Unremarkable Hallucination Type: None Attention and Concentration: Good Suicidal Ideation: No Previous Suicide Attempts: No Homicidal Ideation: No Previous Homicide Attempts: No Insight: Good Affect: Good Mood: Appropriate Motor Activity: Normal gait Assessment & Plan Problem List: (1) Adjustment disorder with mixed disturbance of emotions and conduct Assessment & Plan: On Psychiatric evaluation today the patient does not present any significant or concerning symptomatology of depression that required immediate attention or psychiatric hospitalization. She denies suicidal and homicidal ideation, patient denies visual and auditory hallucinations. Patient has been calm, cooperative and pleasant in the unit. His logical, coherent and relevant. He does not meet criteria for psychiatric admission at this moment. Pinto act will be lifted. ICD Code: F43.25 Assessment & Plan Estimated LOS: days Ruben Ro MD Apr 04, 2017 13:51
[2017-04-04 14:33] VITALS: BP 145/83; TEMP 97.9
--- NOTE | 2017-04-04 17:20 | EKG ---
Date Performed: 04/03/2017 Time Performed: 21:55:09 PTAGE: 57 years EKG: Sinus rhythm WITH FREQUENT VENTRICULAR PREMATURE COMPLEXES POSSIBLE RIGHT ATRIAL ENLARGEMENT POSSIBLE LEFT ATRIAL ENLARGEMENT INCOMPLETE RIGHT BUNDLE BRANCH BLOCK LEFT ANTERIOR FASCICULAR BLOCK NONSPECIFIC T-WAVE A BNORMALITY ABNORMAL ECG Compared to prior tracing no significant change PREVIOUS TRACING : 03/29/2017 21.03 DOCTOR: Avila Fierro Interpretating Date/Time 04/04/2017 17:18:06
== END 2017-04-04 14:42 | disposition home or self-care (01) ==
LOC: NEPE 19:44 → NEPJ 04-04 14:42
DX: M54.9 Dorsalgia, unspecified (principal); G89.29 Other chronic pain; R06.02 Shortness of breath; R07.9 Chest pain, unspecified; F43.25 Adjustment disorder with mixed disturbance of emotions and conduct; F41.9 Anxiety disorder, unspecified; R94.31 Abnormal electrocardiogram [ECG] [EKG]; I45.2 Bifascicular block; F43.10 Post-traumatic stress disorder, unspecified
CPT/HCPCS: 71010; 80053; 80307; 84443; 84484; 85025; 93005; 99283

== ENCOUNTER 2017-04-07 01:25 | Emergency (ER) | payer MEDICARE, OTHER ==
[~2017-04-07] VITALS: Ht 180.3 cm; Wt 84.0 kg
[2017-04-07 01:30] VITALS: BP 165/107; PULSE 76; RESP 20; O2SAT 98
[2017-04-07 01:41] VITALS: BP 162/79; PULSE 76; RESP 18; TEMP 97.6; O2SAT 98
--- NOTE | 2017-04-07 02:40 | PD ---
HPI Chief Complaint: Pain: Acute or Chronic Time Seen by Provider: 02:08 Travel History International Travel<30 days: No Contact w/Intl Traveler<30days: No Traveled to known affect area: No History of Present Illness HPI The patient is a 57 year old male who presents to the [facility] [address] emergency department with a history of 3 weeks of groin pain that he reports began after having a hernia repair in the right groin at [facility]. The patient's surgery was done by Dr. Orellana. The patient reports that while he was in the process of moving to the [facility] his car broke down and he has not been able to follow-up with his surgeon since then. He reports that he was told by his surgeon that it would only take 3 days to heal, however he's been in pain for 3 weeks. The patient was seen with similar complaints in the emergency department on March 29. The patient was admitted by Dr. Dominguez, a local surgeon for additional evaluation. The patient was thought to have a seroma, possible hematoma related to being on Xarelto, however the patient at this time reports that he is not on Xarelto. According to the record the patient was instructed to follow back up with his physician, however he reports again that he cannot do this as he has no transportation. The patient reports that he is unable to sleep because of the pain. He reports that it is making him anxious. He reports that he used to be on Xanax, however since moving he has not had a follow-up appointment with the physician for this, however reviewing the electronic medical records the patient was recently admitted to the psychiatric service related to similar symptoms. On review of systems, the patient denies any recent fevers, cough, congestion, neck pain, chest pain, shortness of breath, vomiting, diarrhea, urinary symptoms, or neurologic symptoms. The patient has been moving his bowels regularly. 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 patient states "I have 30% of my heart working") High Cholesterol: No Chest Pain: Yes (nitro) Congestive Heart Failure: No Cerebrovascular Accident: No Endocrine: No Gastrointestinal Disorders: No GERD: No Genitourinary: No Headaches: Yes Hiatal Hernia: No Hypertension: Yes Immune Disorder: No Implanted Vascular Access Dvce: No Musculoskeletal: Yes (back and neck pain.) Neurologic: Yes (seizure) Psychiatric: Yes (PTSD) Reproductive: No Respiratory: No Migraines: Yes Seizures: Yes (heat triggers, ) Ulcer: No Past Surgical History Narrative Surgical The patient's past surgical history is significant for right inguinal hernia repair, cardiac catheterization with stent placement, left foot surgery, right arm surgery, right hand surgery, and neck and back surgery. Abdominal Surgery: Yes (HERNIA REPAIR 03/2017) AICD: No Arteriovenous Shunt: No Cardiac Surgery: Yes (angioplasty, stents) Coronary Stent: Yes Ear Surgery: No Endocrine Surgery: No Eye Surgery: No Genitourinary Surgery: No Gynecologic Surgery: No Insulin Pump: No Joint Replacement: No Neurologic Surgery: No Oral Surgery: No Pacemaker: No Thoracic Surgery: No Other Surgery: Yes (hernia repair, left foot, right arm, right hand, neck and back surgery.) Social History Alcohol Use: No Tobacco Use: Yes Substance Use: Yes Allergies-Medications (Allergen,Severity, Reaction): Coded Allergies: No Known Allergies (Unverified , 04/03/17) Reported Meds & Prescriptions Reported Meds & Active Scripts Active No Active Prescriptions or Reported Medications Review of Systems Except as stated in HPI: all other systems reviewed are Neg General / Constitutional: No: Fever Eyes: No: Visual changes HENT: No: Headaches Cardiovascular: No: Chest Pain or Discomfort Respiratory: No: Shortness of Breath Gastrointestinal: Positive: Other (right groin pain), No: Nausea, Vomiting, Diarrhea, Abdominal Pain Genitourinary: No: Dysuria Musculoskeletal: No: Pain Skin: No Rash Neurologic: No: Weakness Psychiatric: No: Depression Endocrine: No: Polydipsia Hematologic/Lymphatic: No: Easy Bruising Physical Exam Narrative General: The patient is a well-developed well-nourished male in no acute distress. Head and Neck exam: Head is normocephalic atraumatic. Eyes: EOMI, pupils are equal round and reactive to light. Nose: Midline septum with pink mucous membranes Mouth: Dentition unremarkable. Moist mucus membranes. Posterior oropharynx is not erythematous. No tonsillar hypertrophy. Uvula midline. Airway patent. Neck: No palpable lymphadenopathy. No nuchal rigidity. No thyromegaly. Cardiovascular: Regular rate and rhythm without murmurs, gallops, or rubs. Lungs: Clear to auscultation bilaterally. No wheezes, rhonchi, or rales. Abdomen: Soft, without tenderness to palpation in all 4 quadrants of the abdomen. No guarding, rebound, or rigidity. Normal bowel sounds are audible. No tenderness on palpation of McBurney's point. Negative Guil[place] sign. On examination of the patient's right groin the patient has a wound noted that appears to be healing well with some swelling underlying this area. From reviewing the electronic medical record this appears to be similar in appearance. No increased swelling. The ecchymosis that was present previously has resolved. There is no swelling that extends down into the scrotum that was previously noted on Dr. Dominguez's exam. Extremities: No clubbing, cyanosis, or edema. 2+ pulses in all 4 extremities. Back: No costovertebral angle tenderness to palpation. Neurologic Exam: Grossly nonfocal. Skin Exam: No rash noted. Intact skin that is warm and dry. Data Data Last Documented VS Vital Signs Date Time Temp Pulse Resp B/P Pulse Ox O2 Delivery O2 Flow Rate FiO2 04/07/17 01:41 97.6 76 18 162/79 98 Room Air Orders Acetaminophen (Tylenol) (04/07/17 03:00) MDM Medical Decision Making Medical Screen Exam Complete: Yes Emergency Medical Condition: No Medical Record Reviewed: Yes Differential Diagnosis Seroma, versus hematoma Narrative Course During the course of the patients emergency department visit, the patients history, examination, and differential diagnosis were reviewed with the patient. The patient's electronic medical record was reviewed. The patient's case management history was reviewed with the case packer [employer] cloud consulting architect this evening , Nicole who was able to find other records from the case packer set of seen him in the past. The patient has been given multiple transportation vouchers including vouchers to go to both [place] and [place]. Based on the patient's current examination, the patient has no signs of infection. The patient is afebrile. The patient has no signs of acute distress. Again I discussed with the patient the need for him to follow-up with a surgeon regarding this. The patient was instructed that ideally he would need to follow-up with the surgeon that did his procedure at [facility], however he reports that there is no way that he can get transportation to that area. The patient was admitted by Dr. Dominguez to this facility previously. I do not see any follow-up instructions and the record regarding this admission. The patient will be given Dr. Dominguez's office information and instructed to call in the morning to see if he can get an appointment for follow-up with him. The patient was given Tylenol for pain. The patient is resting comfortably and feels better, is alert and in no distress. The patients results and examination findings were discussed with the patient. The repeat examination is unremarkable and benign. The history, exam, diagnostic testing, and current condition do not suggest any significant pathology to warrant further testing, continued ED treatment, admission, or surgical evaluation at this point. The vital signs have been stable. The patient does not have uncontrollable pain, intractable vomiting, or other significant symptoms. The patient's condition is stable and appropriate for discharge. The patient will pursue further outpatient evaluation with a primary care physician or other designated or consulting physician as indicated in the discharge instructions. The patient expressed understanding and was agreeable with this plan. Diagnosis Primary Impression: Postoperative pain Referrals: Aidan Dominguez MD call for appointment General Surgeon 2 days Patient Instructions: General Instructions Scripts No Active Prescriptions or Reported Meds Disposition: 01 DISCHARGE HOME Condition: Stable Janelle Keyes MD Apr 07, 2017 02:40
[2017-04-07] MEDS ORDERED: ACETAMINOPHEN 325 MG TAB PO ONE (03:00)
== END 2017-04-07 03:40 | disposition home or self-care (01) ==
LOC: NEPC 01:25
DX: G89.18 Other acute postprocedural pain (principal); I10 Essential (primary) hypertension
CPT/HCPCS: 99283

== ENCOUNTER 2017-05-23 11:17 | Emergency (ER) | payer MEDICARE ==
[~2017-05-23] VITALS: Ht 188 cm; Wt 85.0 kg
[2017-05-23 11:19] VITALS: BP 124/59; PULSE 104; RESP 16; TEMP 98; O2SAT 93
--- NOTE | 2017-05-23 11:25 | PD ---
Physical Exam Date Seen by Provider: May 23, 2017 Time Seen by Provider: 11:22 Data Data Last Documented VS Vital Signs Date Time Temp Pulse Resp B/P (MAP) Pulse Ox O2 Delivery O2 Flow Rate FiO2 05/23/17 11:19 98.0 104 16 124/59 (80) 93 MDM Supervised Visit with TAMICA: No Narrative Course 57 YO M with complaint of weakness, dizziness, pain "from the bottom of my foot to the top of my head." Weakness and dizziness since today. Pain chronic. Denies taking any pain medications today. Drove himself to the ED. Vitals reviewed. Patient seen in the ED, awaiting bed placement. Scripts No Active Prescriptions or Reported Meds Jessica Moore May 23, 2017 11:25
[2017-05-23] MEDS ORDERED: SODIUM CHLORIDE 0.9% FLUSH 10 ML FLUSH IVF PRN (11:45)
[2017-05-23] MEDS ORDERED: SODIUM CHLOR 0.9% 1000 ML INJ 1,000 ML IV ONE (11:45)
[2017-05-23 11:49] VITALS: RESP 16; O2SAT 98
[2017-05-23 11:50] VITALS: BP 122/82; PULSE 84; RESP 16; O2SAT 98
--- NOTE | 2017-05-23 11:51 | PD ---
HPI Chief Complaint: General Weakness Time Seen by Provider: 11:27 Travel History International Travel<30 days: No Contact w/Intl Traveler<30days: No Traveled to known affect area: No History of Present Illness HPI This patient complains of generalized weakness. Duration one day. He complains of feeling lightheaded and dizzy. No significant vertigo activity. Denies syncope. Patient comes with significant sunburn on most of his body. He says he was out in the heat yesterday for several hours. He denies alcohol or drug abuse. He does take chronic pain medicine for his back. No alleviating factors. Symptoms are exacerbated by movement. Symptoms severity is moderate PFSH Past Medical History Hx Anticoagulant Therapy: Yes (HX XARELTO REFUSES TO TAKE CURRENTLY ) AAA: Yes ("stable") Arthritis: Yes Anxiety: Yes Depression: No Heart Rhythm Problems: No Cancer: No Cardiac Catheterization: Yes Cardiovascular Problems: Yes (stents x3. patient states "I have 30% of my heart working") High Cholesterol: No Chest Pain: Yes (nitro) Congestive Heart Failure: No Cerebrovascular Accident: No Endocrine: No Gastrointestinal Disorders: No GERD: No Genitourinary: No Headaches: Yes Hiatal Hernia: No Hypertension: Yes Immune Disorder: No Implanted Vascular Access Dvce: No Musculoskeletal: Yes (back and neck pain.) Neurologic: Yes (seizure) Psychiatric: Yes (PTSD) Reproductive: No Respiratory: No Migraines: Yes Seizures: Yes (heat triggers, ) Ulcer: No Past Surgical History Abdominal Surgery: Yes (HERNIA REPAIR 03/2017) AICD: No Arteriovenous Shunt: No Cardiac Surgery: Yes (angioplasty, stents) Coronary Stent: Yes Ear Surgery: No Endocrine Surgery: No Eye Surgery: No Genitourinary Surgery: No Gynecologic Surgery: No Insulin Pump: No Joint Replacement: No Neurologic Surgery: No Oral Surgery: No Pacemaker: No Thoracic Surgery: No Other Surgery: Yes (hernia repair, left foot, right arm, right hand, neck and back surgery.) Social History Alcohol Use: No Tobacco Use: Yes Substance Use: Yes Allergies-Medications (Allergen,Severity, Reaction): Coded Allergies: No Known Allergies (Unverified , 04/03/17) Reported Meds & Prescriptions Reported Meds & Active Scripts Active No Active Prescriptions or Reported Medications Review of Systems General / Constitutional: No: Fever Eyes: No: Visual changes HENT: Positive: Lightheadedness, No: Headaches Cardiovascular: No: Chest Pain or Discomfort Respiratory: No: Shortness of Breath Gastrointestinal: No: Abdominal Pain Genitourinary: No: Dysuria Musculoskeletal: Positive: Weakness, Pain Skin: No Rash Neurologic: Positive: Weakness, Dizziness Psychiatric: No: Depression Endocrine: No: Polydipsia Hematologic/Lymphatic: No: Easy Bruising Physical Exam Narrative GENERAL: Well-nourished, well-developed patient in no apparent distress. SKIN: Focused skin assessment reveals diffuse macular erythema worse on the face but also on extremities and trunk. Skin is Warm and dry. HEAD: Atraumatic. Normocephalic. EYES: Pupils equal and round. No scleral icterus. No injection or drainage. ENT: No nasal bleeding or discharge. Mucous membranes pink and moist. NECK: Trachea midline. No JVD. CARDIOVASCULAR: Regular rate and rhythm. No murmur appreciated. RESPIRATORY: No accessory muscle use. Clear to auscultation. Breath sounds equal bilaterally. GASTROINTESTINAL: Abdomen soft, non-tender, nondistended. Hepatic and splenic margins not palpable. MUSCULOSKELETAL: No obvious deformities. No clubbing. No cyanosis. No edema. NEUROLOGICAL: Awake and alert. No obvious cranial nerve deficits. Motor grossly within normal limits. Normal speech. PSYCHIATRIC: Appropriate mood and affect; insight and judgment questionable. Data Data Last Documented VS Vital Signs Date Time Temp Pulse Resp B/P (MAP) Pulse Ox O2 Delivery O2 Flow Rate FiO2 05/23/17 11:50 84 16 122/82 (95) 98 Room Air 05/23/17 11:19 98.0 Orders Orders Basic Metabolic Panel (Bmp) (05/23/17 11:45) Complete Blood Count With Diff (05/23/17 11:45) Ecg Monitoring (05/23/17 11:45) Iv Access Insert/Monitor (05/23/17 11:45) Oximetry (05/23/17 11:45) Sodium Chloride 0.9% Flush (Ns Flush) (05/23/17 11:45) Sodium Chlor 0.9% 1000 Ml Inj (Ns 1000 M (05/23/17 11:45) Electrocardiogram (05/23/17 ) Labs Laboratory Tests Test 05/23/17 11:45 05/23/17 12:25 White Blood Count 13.5 TH/MM3 Red Blood Count 5.88 MIL/MM3 Hemoglobin 16.9 GM/DL Hematocrit 50.9 % Mean Corpuscular Volume 86.6 FL Mean Corpuscular Hemoglobin 28.8 PG Mean Corpuscular Hemoglobin Concent 33.2 % Red Cell Distribution Width 17.6 % Platelet Count 310 TH/MM3 Mean Platelet Volume 8.2 FL Neutrophils (%) (Auto) 67.6 % Lymphocytes (%) (Auto) 20.4 % Monocytes (%) (Auto) 8.8 % Eosinophils (%) (Auto) 2.1 % Basophils (%) (Auto) 1.1 % Neutrophils # (Auto) 9.1 TH/MM3 Lymphocytes # (Auto) 2.8 TH/MM3 Monocytes # (Auto) 1.2 TH/MM3 Eosinophils # (Auto) 0.3 TH/MM3 Basophils # (Auto) 0.1 TH/MM3 CBC Comment DIFF FINAL Differential Comment MDM Medical Decision Making Medical Screen Exam Complete: Yes Emergency Medical Condition: Yes Medical Record Reviewed: Yes Differential Diagnosis Heat exhaustion, dehydration, flu syndrome, vertigo Narrative Course I have reviewed the patient's electronic medical record. Patient was here recently and diagnosed with postoperative pain. He has had groin surgery recently. IV placed I gave him 1 L normal saline IV bolus I reviewed his EKG which shows sinus rhythm at [address] elevation Extended cardiac monitoring reveals sinus rhythm without ectopy CBC shows minor leukocytosis which is nonspecific with normal hemoglobin Metabolic profile is still pending Don't sense any neurologic deficit. His vital signs are normal. Patient started to be very verbally appropriate. He refused to have the nurse touch in because she is [place]. He started making lots of racist comments. He then says he wanted to leave. He ended up signing out AGAINST MEDICAL ADVICE. He would not wait long enough for me to come back in the room and talked to him. ' Diagnosis Primary Impression: Lightheadedness Additional Impressions: Generalized weakness Adult behavior problems Scripts No Active Prescriptions or Reported Meds Disposition: 07 AGAINST MEDICAL ADVICE Yung Thompson MD May 23, 2017 11:51
[2017-05-23 12:14] LABS: AUTOMATED NEUTROPHIL # 9.1 TH/MM3 (1.8-7.7); BASOPHIL # 0.1 TH/MM3 (0-0.2); BASOPHIL % 1.1 % (0.0-2.0); EOSINOPHIL # 0.3 TH/MM3 (0-0.4); EOSINOPHIL % 2.1 % (0.0-4.0); HEMATOCRIT 50.9 % (39.0-51.0); HEMO FLAGS DIFF FINAL; LYMPH % 20.4 % (9.0-44.0); LYMPHOCYTE # 2.8 TH/MM3 (1.0-4.8); MEAN CELL VOLUME 86.6 FL (80.0-100.0); MEAN CORPUSCULAR HEMOGLOBIN 28.8 PG (27.0-34.0); MEAN CORPUSCULAR HGB CONC 33.2 % (32.0-36.0); MONO % 8.8 % (0.0-8.0); NEUT % 67.6 % (16.0-70.0); PLATELET COUNT 310 TH/MM3 (150-450); RED BLOOD COUNT 5.88 MIL/MM3 (4.50-5.90); RED CELL DISTRIBUTION WIDTH 17.6 % (11.6-17.2); WHITE BLOOD COUNT 13.5 TH/MM3 (4.0-11.0)
--- NOTE | 2017-05-24 01:26 | EKG ---
Date Performed: 05/23/2017 Time Performed: 11:44:17 PTAGE: 57 years EKG: Sinus rhythm POSSIBLE RIGHT ATRIAL ENLARGEMENT LEFT ANTERIOR FASCICULAR BLOCK NONSPECIFIC T-WAVE ABNORMALITY ABNO RMAL ECG PREVIOUS TRACING : 04/03/2017 21.55 Compared to previous tracing, PVCs are no longer present. DOCTOR: Pako Squires Interpretating Date/Time 05/24/2017 01:24:26
== END 2017-05-23 14:06 | disposition left against medical advice (07) ==
LOC: NEPD 11:17
DX: R42 Dizziness and giddiness (principal); R53.1 Weakness; D72.829 Elevated white blood cell count, unspecified; L53.9 Erythematous condition, unspecified; I44.4 Left anterior fascicular block; R94.31 Abnormal electrocardiogram [ECG] [EKG]; M19.90 Unspecified osteoarthritis, unspecified site; I10 Essential (primary) hypertension; Z72.0 Tobacco use
CPT/HCPCS: 85025; 93005; 99284; J7030